=== PATIENT | male | born 1935 | race Caucasian/White ===

== ENCOUNTER → 2017-02-18 | Outpatient (CLI) | payer MEDICARE, OTHER ==
[~2017-02-18] MED LIST: ASPI-781 PO; MULT-552 PO
--- NOTE | 2017-02-19 02:54 | HKNOTE ---
DATE OF SERVICE: The patient was last seen by me almost a year ago. He comes in for checkup on his left hip replacem ent. He also has some minor pain in his right hip. He is particularly pleased with the result of his left hip replacement. He gets minimal pain in the right groin after walking long distances. PHYSICAL EXAMINATION: VITAL SIGNS: Normal. He walks without a walking aid. His gait is normal. EXAMINATION OF THE LEFT HIP: A full range of motion without pain. EXAMINATION OF THE RIGHT HIP: Mildly limited range of motion with mild pain in the right groin on f orced internal rotation. Marked tenderness over the right greater trochanter. IMAGING: Plain x-rays of the pelvis and hips obtained today were reviewed. These show that all com ponents ____ left hip replacement all were well placed and well attached to the bone without evidenc e of any underlying problem. 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 However, his right hip x-rays were compared with those taken abou t 18 months ago and there has not been any change. MANAGEMENT: Given reassurance that he is doing extremely well, he will be seen again in a year's ti me or sooner for reevaluation or sooner if the right hip starts to cause him any trouble. Dictated By: DOUGLAS ELMORE/MAI Conf#: [id number] DID#: [id number]
--- NOTE | 2017-02-19 08:23 | RADRPT ---
PROCEDURE: XR pelvis and left hip. CLINICAL INDICATION: pain TECHNIQUE: AP pelvis, frog lateral views of the left hip were performed. COMPARISON: [facility] 08/22/2015 FINDINGS: There is normal mineralization and alignment. No acute fracture or osseous lesion is identified. The patient is status post left hip replacement. There is appropriate position of the prosthesis. There are moderate to severe degenerative changes of the right hip. There is joint space narrowing a nd subchondral sclerosis. The soft tissues are unremarkable. RPTAT: AA IMPRESSION: Status post left hip replacement with appropriate position of the prosthesis. Moderate to severe degenerative changes of the right hip. .Martinez Eckert MD, MD Date Time Electronically viewed and signed by .Martinez Eckert MD, on 02/19/2017 08:23 .S/
== END | disposition home or self-care (01) ==
LOC: HKI 09:19
DX: Z47.1 Aftercare following joint replacement surgery (principal); Z96.642 Presence of left artificial hip joint
CPT/HCPCS: 73502; G0463